=== PATIENT | female | born 1995 | race Caucasian/White ===

== ENCOUNTER → 2022-08-14 10:47 | Outpatient (CLI) | payer OTHER, SELFPAY ==
--- NOTE | 2022-08-14 10:51 | DI.MRI.S_ITS ---
PROCEDURE: MR TMJ WO CON INDICATIONS: Arthralgia of temporomandibular joint TECHNIQUE: Axial T1 spin echo, coronal and sagittal PD fast spin echo through the temporomandibular joints, in both the closed- and open-mouth positions. COMPARISON: None. FINDINGS: Image quality: Excellent. Right: Joint is normally aligned on closed and open-mouth positioning. Articular disk demonstrates normal location and morphology. No bony erosions or osteophytes. Left: Joint is normally aligned on closed and open-mouth positioning. Heterogeneously increased T2 hyperintense signal and deformity involving articular disc particularly involving central portion of the disc suggestive of complex tear. No bony erosions or osteophytes. IMPRESSION: 1. Normal appearing right TMJ. 2. Complex tear involving articular disc of left TMJ. No marrow signal abnormality. No fracture or dislocation. No abnormal disc displacement. Dictated by: Demarco Beckham M.D. on 08/16/2022 at 10:24 Approved by: Demarco Beckham M.D. on 08/16/2022 at 10:30
== END ==
PROVIDERS: Referring Provider Student in an Organized Health Care Education/Training Program; Visit Provider Student in an Organized Health Care Education/Training Program
DX: M26.629 Arthralgia of temporomandibular joint, unspecified side (principal)
CPT/HCPCS: 70336